=== PATIENT | female | born 1990 | race Two or more races ===

== ENCOUNTER 2019-04-04 08:35 | Emergency (ER) | payer OTHER ==
[~2019-04-04] VITALS: Ht 165.1 cm; Wt 64.9 kg
[2019-04-04 08:43] VITALS: BP 113/68
--- NOTE | 2019-04-04 09:02 | NUR ---
RING ON LEFT INDEX FINGER REMOVED VIA RING CUTTER.
== END 2019-04-04 09:12 | disposition home or self-care (01) ==
LOC: ER 08:37
DX: S60.451A Superficial foreign body of left index finger, initial encounter (principal); Z60.2 Problems related to living alone; W45.8XXA Other foreign body or object entering through skin, initial encounter; Y93.89 Activity, other specified; Y92.89 Other specified places as the place of occurrence of the external cause; Y99.8 Other external cause status

== ENCOUNTER 2019-06-01 14:18 | Emergency (ER) | payer OTHER ==
[~2019-06-01] VITALS: Ht 165.1 cm; Wt 66.2 kg
[2019-06-01 14:23] VITALS: BP 109/81
[2019-06-01] MEDS ORDERED: LIDOCAINE /MPF 1% VIAL 5 ML VIAL ONE (14:46)
--- NOTE | 2019-06-01 16:15 | NUR ---
Patient discharged to home in stable condition. Written and verbal after care instructions given. Patient verbalizes understanding of instruction.
== END 2019-06-01 16:17 | disposition home or self-care (01) ==
LOC: ER 14:18
DX: S00.551A Superficial foreign body of lip, initial encounter (principal); Z60.2 Problems related to living alone; W45.8XXA Other foreign body or object entering through skin, initial encounter; Y93.89 Activity, other specified; Y92.89 Other specified places as the place of occurrence of the external cause; Y99.8 Other external cause status
CPT/HCPCS: 10120; 99284; J3490

== ENCOUNTER 2020-04-12 03:15 | Inpatient (IN) | payer OTHER ==
[~2020-04-12] VITALS: Ht 165.1 cm; Wt 60.8 kg
[2020-04-12 04:30] VITALS: BP 126/75
[2020-04-12] MEDS ORDERED: IV NS 0.9% 1,000 ML IV PRN (04:51)
[2020-04-12] MEDS ORDERED: DEXTROSE 50%-WATER 50 ML DISP.SYRIN IV PRN (05:00)
[2020-04-12] MEDS ORDERED: MAG HYDROX/AL HYDROX/SIMETH 30 ML UDC PO PRN (05:00)
[2020-04-12] MEDS ORDERED: ACETAMINOPHEN 325 MG TABLET PO PRN (05:00)
[2020-04-12] MEDS ORDERED: Z GUARD REMEDY 2 OZ OINT TP PRN (05:00)
[2020-04-12] MEDS ORDERED: ONDANSETRON HCL/PF 4 MG/2 ML VIAL IVP PRN (05:00)
[2020-04-12] MEDS ORDERED: LORAZEPAM 0.5 MG TABLET PO ONE (05:00)
[2020-04-12] MEDS ORDERED: MAGNESIUM HYDROXIDE 30 ML UDC PO PRN (05:00)
[2020-04-12] MEDS: AZITHROMYCIN 250 MG TABLET PO SCH (05:29)
[2020-04-12] MEDS ORDERED: CEFTRIAXONE 1 G VIAL ONE ×2 (05:40→05:58)
[2020-04-12] MEDS: CEFTRIAXONE 2 G in IV NS 0.9% 100 ML IV SCH (06:10)
[2020-04-12 06:20] LABS: BASOPHILS % (AUTO) 0.2 % (0.0-2.0); HEMATOCRIT 42 % (33-45); LYMPHOCYTES # (AUTO) 0.5 /CMM (0.8-4.8); LYMPHOCYTES % (AUTO) 6.6 % (20.0-44.0); MEAN CORPUSCULAR HGB CONC 33 g/dl (31.0-36.0); MEAN CORPUSCULAR VOLUME 88 fL (82-100); MONOCYTES # (AUTO) 0.1 /CMM (0.1-1.30); MONOCYTES % (AUTO) 1.3 % (2.0-12.0); NEUTROPHILS # (AUTO) 7.2 /CMM (1.8-8.9); NEUTROPHILS % (AUTO) 91.9 % (43.0-81.0); PLATELET COUNT (AUTO) 262 /CMM (150-450); RED BLOOD CELL COUNT(AUTO) 4.76 MIL/uL (4.0-5.2); WHITE BLOOD COUNT (AUTO) 7.8 K/uL (4.3-11.0)
[2020-04-12 06:56] LABS: ALBUMIN 3.6 g/dL (3.4-5.0); BILIRUBIN,TOTAL 0.3 mg/dL (0.2-1.0); CALCIUM, SERUM 8.8 mg/dL (8.5-10.1); MAGNESIUM 2.1 mg/dL (1.8-2.4); PHOSPHORUS 2.8 mg/dL (2.5-4.9); POTASSIUM 3.9 mmol/L (3.5-5.1)
--- NOTE | 2020-04-12 07:30 | NUR ---
TELE/RN OPENING NOTES RECEIVED PATIENT AWAKE IN BED ALERT AND ORIENTED X 4. PATIENT IS ON 3L'S OXYGEN N/C STATING AT 94%. TELE READING IS NORMAL SINUS RHYTHM 85. PATIENT HAS IV ACCESS ON RIGHT AC #20 G INTACT RUNNING NS AT 75 ML/HR. PATIENTS STATES NO PAIN AT THE MOMENT. NO SIGNS OF SOB OR RESPIRATORY DISTRESS NOTED. SAFETY MEASURES ARE IN PLACE, BED LOCKED AND IN LOW POSITION, CALL LIGHT IS WITHIN REACH. WILL CONTINUE MONITORING.
[2020-04-12] MEDS: IPRATROPIUM NEB FS 0.5 MG/2.5 ML AMPUL.NEB NEB SCH ×4 (07:35→20:05)
[2020-04-12] MEDS: ALBUTEROL FS 2.5 MG/0.5 ML VIAL.NEB NEB SCH ×4 (07:35→20:05)
--- NOTE | 2020-04-12 07:43 | NUR ---
RT PATIENT REFUSED BREATHING TX AT THIS TIME. SP02 96% HR 86 RR20 NO SOB NOTED
[2020-04-12 08:00] VITALS: BP 106/54
[2020-04-12] MEDS: BLOOD SUGAR DIAGNOSTIC 1 EACH STRIP IN SCH ×4 (09:40→23:00)
[2020-04-12] MEDS: methylPREDNISolone SOD SUCC 40 MG/ML VIAL IV SCH ×3 (09:43→16:56)
[2020-04-12] MEDS: PANTOPRAZOLE 40 MG TABLET.DR PO SCH (09:43)
[2020-04-12] MEDS: INSULIN REGULAR, HUMAN 100 UNIT/ML 3 ML VIAL SQ PRN ×3 (10:05→23:05)
[2020-04-12] MEDS: LORAZEPAM INJ 2 MG/ML VIAL IV PRN (12:09)
--- NOTE | 2020-04-12 15:23 | NUR ---
RT PT REFUSED BREATHING TX. SP02 98% HR 82 RR 18
[2020-04-12 16:00] VITALS: BP 111/63
--- NOTE | 2020-04-12 18:24 | NUR ---
MS/RN CLOSING NOTES PATIENT IS RESTING IN BED ALERT AND ORIENTED X 4. PATIENT IS ON 3L'S OXYGEN N/C STATING AT 94%. PATIENT HAS IV ACCESS ON RIGHT AC #20 G INTACT RUNNING NS AT 75 ML/HR. PATIENTS STATES NO PAIN AT THE MOMENT. NO SIGNS OF SOB OR RESPIRATORY DISTRESS NOTED. SAFETY MEASURES ARE IN PLACE, BED LOCKED AND IN LOW POSITION, CALL LIGHT IS WITHIN REACH. WILL ENDORSE CARE TO INFECTIOUS DISEASES PHYSICIAN.
--- NOTE | 2020-04-12 19:25 | NUR ---
MS/RN OPENING NOTES REPORT RECIEVED FROM JEREMY AND JOSÉ MIGUEL RN. PATIENT IS RESTING IN BED ALERT AND ORIENTED X 4. OXYGEN IN NO APPARENT RESP DISTRESS BREATHING IS EVEN AND UNLABORED. INCENTIVE SPIROMETRY BROUGHT TO THE BEDSIDE PATIENT INSTRUCTED ON ITS USE AND DEMONSTRATED SUCCESSFULLY ENCOURAGED TO USE EVERY HOUR WHILE AWAKE 10 TIMES. PATIENT HAS IV ACCESS ON RIGHT AC #20 G INTACT RUNNING NS AT 75 ML/HR. PATIENTS DENIES PAIN SAFETY MEASURES ARE IN PLACE, BED LOCKED AND IN LOW POSITION, CALL LIGHT IS WITHIN REACH. WILL CONT TO MONITOR.
[2020-04-13] MEDS: LORAZEPAM INJ 2 MG/ML VIAL IV PRN (02:09)
[2020-04-13] MEDS: PANTOPRAZOLE 40 MG TABLET.DR PO SCH (06:41)
[2020-04-13] MEDS: AZITHROMYCIN 250 MG TABLET PO SCH (06:41)
[2020-04-13] MEDS: CEFTRIAXONE 2 G in IV NS 0.9% 100 ML IV SCH (06:41)
[2020-04-13] MEDS: BLOOD SUGAR DIAGNOSTIC 1 EACH STRIP IN SCH (06:48)
[2020-04-13] MEDS: IPRATROPIUM NEB FS 0.5 MG/2.5 ML AMPUL.NEB NEB SCH (07:29)
[2020-04-13] MEDS: ALBUTEROL FS 2.5 MG/0.5 ML VIAL.NEB NEB SCH (07:29)
--- NOTE | 2020-04-13 07:30 | NUR ---
REFUSED AM LAB DRAW PER EXPLOSIVES DETONATOR. ASKED TO COME BACKK LATER THIS AM.
--- NOTE | 2020-04-13 07:30 | NUR ---
MS/RN OPENING NOTES PATIENT IS RESTING IN BED ALERT AND ORIENTED X 4. PATIENT HAS IV ACCESS ON RIGHT AC #20 G INTACT RUNNING NS AT 75 ML/HR. PATIENTS STATES NO PAIN AT THE MOMENT. NO SIGNS OF SOB OR RESPIRATORY DISTRESS NOTED. SAFETY MEASURES ARE IN PLACE, BED LOCKED AND IN LOW POSITION, CALL LIGHT IS WITHIN REACH. WILL CONTINUE TO MONITOR DURING SHIFT.
[2020-04-13 08:00] VITALS: BP 122/66
--- NOTE | 2020-04-13 09:00 | NUR ---
MS/RN NOTES PATIENT ALERT AND ORIENTATED X 4, DENIES PAIN, NO SIGNS OF SOB NOTED.PATIENT LEFT AMA DESPITE BEING EXPLAINED THE RISK AND BENEFITS OF LEAVING. PATIENT WAS IN NO SIGN OF DISTRESS. IV ACCESS SITE WAS D/C.
== END 2020-04-13 09:00 | disposition left against medical advice (07) | DRG 141 ==
LOC: TELE 04:25 → MED 12:11
PROVIDERS: ADMIT Internal Medicine; ATTEND Nurse Practitioner Acute Care
DX: J45.901 Unspecified asthma with (acute) exacerbation (principal); G92 Toxic encephalopathy; F17.210 Nicotine dependence, cigarettes, uncomplicated; R73.9 Hyperglycemia, unspecified; F15.93 Other stimulant use, unspecified with withdrawal
CPT/HCPCS: 36415; 70220-TC; 71045-TC; 80053-TC; 80061-TC; 82962-TC; 83735-TC; 84100-TC; 85025-TC; 87081-TC; 94799-TC; G0378; J0696; J1815; J2060; J2920; J7030

== ENCOUNTER 2020-12-18 04:05 | Emergency (ER) | payer OTHER ==
[~2020-12-18] VITALS: Ht 165.1 cm; Wt 60.3 kg
[2020-12-18 05:19] LABS: BILIRUBIN,URINE NEGATIVE (NEGATIVE); COLOR,URINE YELLOW (YELLOW); LEUKOCYTE ESTERASE ,URINE TRACE (NEGATIVE); NITRITE, URINE NEGATIVE (NEGATIVE); PH,URINE 5.5 (5.0-8.0); PROTEIN,URINE NEGATIVE (NEGATIVE); UGLUCOSE NEGATIVE (NEGATIVE); UROBILINOGEN,URINE 0.2 EU/dL (0.2)
[2020-12-18 05:24] LABS: RBC,URINE 0-2 /HPF (0-2); WBC,URINE 21-50 /HPF (0-3)
[2020-12-18 05:25] LABS: BACTERIA,URINE Moderate /HPF (None Seen); MUCUS,URINE Moderate /LPF (None Seen); SQUAMOUS EPITHELIAL CELL,UR Moderate /HPF (None Seen)
[2020-12-18] MEDS ORDERED: CEFTRIAXONE 500 MG VIAL ONE (05:51)
[2020-12-18] MEDS ORDERED: ALBU8.5H8 INH (05:51)
[2020-12-18] MEDS ORDERED: AZITHROMYCIN 250 MG TABLET ONE (05:52)
[2020-12-18] MEDS ORDERED: LIDOCAINE /MPF 1% VIAL 5 ML VIAL ONE (05:53)
--- NOTE | 2020-12-18 05:57 | NUR ---
pt is medically stable for d.c. Patient discharged to home in stable condition. Rx and Written and verbal after care instructions given. Patient verbalizes understanding of instruction.
[2020-12-18 05:59] VITALS: BP 121/72
[2020-12-18] MEDS ORDERED: AZITHROMYCIN 250 MG TABLET PO ONE (06:00)
[2020-12-18] MEDS ORDERED: CEFTRIAXONE 500 MG VIAL IM ONE (06:00)
== END 2020-12-18 06:04 | disposition home or self-care (01) ==
LOC: ER 04:09
DX: Z76.0 Encounter for issue of repeat prescription (principal); J45.909 Unspecified asthma, uncomplicated; F17.200 Nicotine dependence, unspecified, uncomplicated; Z60.2 Problems related to living alone
CPT/HCPCS: 81001; 84703; 87086; 87491; 87591; 96372; 99283; J0696; J3490